=== PATIENT | female | born 1965 | race Caucasian/White ===

== ENCOUNTER 2016-12-03 11:21 | Emergency (ER) | payer OTHER ==
[2016-12-03 11:29] VITALS: TEMP 98.8
[2016-12-03] MEDS ORDERED: NS 1,000 ML IV ONE (11:41)
[2016-12-03] MEDS ORDERED: ONDANSETRON 4 MG/2 ML VIAL IVP ONE (11:41)
[2016-12-03 12:28] LABS: % IMMATURE GRANULYOCYTES 0.3 % (0.0-1.1); ABSOLUTE IMMATURE GRANULOCYTES 0.02 10^3/uL (0.00-0.10); ADD DIFF? NO; ADD MORPH? NO; ADD SCAN? YES; ATYPICAL LYMPHOCYTE FLAG 0 (0-99); FRAGMENT RBC FLAG 0 (0-99); HEMATOCRIT 44.5 % (38.0-47.0); HEMOGLOBIN 14.3 g/dL (12.6-16.3); LIPEMIA HEMOLYSIS FLAG 80 (0-99); MEAN CELL HEMOGLOBIN 26.7 pg (27.9-34.1); MEAN CELL HEMOGLOBIN CONCENTR. 32.1 g/dL (32.4-36.7); MEAN CELL VOLUME 83.2 fL (81.5-99.8); MEAN PLATELET VOLUME 10.9 fL (8.7-11.7); PLATELET CLUMPS FLAG 0 (0-99); PLATELET COUNT 241 10^3/uL (150-400); RED BLOOD CELL COUNT 5.35 10^6/uL (4.18-5.33); RED CELL DISTRIBUTION WIDTH 14.5 % (11.5-15.2)
[2016-12-03 12:30] LABS: LEFT SHIFT FLG 220 (0-99)
--- NOTE | 2016-12-03 12:32 | EDPHY ---
H & P Stated Complaint: Abd pain x 1 month;started n/v/d since last night Time Seen by Provider: 12/03/16 12:22 HPI/ROS: CHIEF COMPLAINT: abdominal pain HISTORY OF PRESENT ILLNESS: The patient is a 50 y/o female arriving with hr family member complaining of worsening abdominal pain over the last two months and vomiting onset early this morning around 04:00. She has a history of intermittent abdominal pain related to IBS, constipation, and multiple colonoscopies due to polyps. She reports worsening constipation for the last 2 weeks and loss of appetite. The abd pain is diffuse and feels like "pulling on my organs" and is worse on the right side described as "burning." The pain improves when she pushes on her abdomen or has a bowel movement and worsens at night or after eating. She also notes a "low-grade" fever and chills. She has no history of diverticulosis. Reports "lots of scarring" in her abdomen from past surgery. REVIEW OF SYSTEMS: Constitutional: see HPI Eyes: No visual changes ENT: No sore throat Respiratory: No cough, no shortness of breath Cardiac: No chest pain Gastrointestinal: see HPI Genitourinary: No hematuria, no dysuria Musculoskeletal: No leg pain or swelling Skin: No rash Neurological: No headache, no weakness Psychiatric: No depression - Personal History LMP (Females 10-55): Over 28 Days Ago Current Tetanus Diphtheria and Acellular Pertussis (TDAP): Yes - Medical/Surgical History PMH: Multiple colonoscopies and polyps, IBS, constipation, cholecystectomy, HELLP, "liver stones" Hx Asthma: Yes Hx Chronic Respiratory Disease: No Hx Diabetes: No Hx Cardiac Disease: No Hx Renal Disease: No Hx Cirrhosis: No Hx Alcoholism: No Hx HIV/AIDS: No Hx Splenectomy or Spleen Trauma: No Other PMH: kidney stones, asthma, 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 Family member at bedside. - Physical Exam Exam: General Appearance: Alert, appears-uncomfortable, curled on the bed Eyes: Pupils equal and round, no conjunctival pallor or injection ENT, Mouth: Mucous membranes moist Neck: Normal inspection Respiratory: Lungs are clear to auscultation Cardiovascular: Regular rate and rhythm Gastrointestinal: Abdomen is soft with RUQ and epigastric tenderness Neurological: A&O, nonfocal, normal gait Skin: Warm and dry, no rash Extremities: Nontender, no pedal edema Psychiatric: Mood and affect normal Constitutional: Initial Vital Signs Temperature (C) 37.1 C 12/03/16 11:26 Heart Rate 123 H 12/03/16 11:26 Respiratory Rate 18 12/03/16 11:26 Blood Pressure 121/80 H 12/03/16 11:26 O2 Sat (%) 96 12/03/16 11:26 O2 Delivery Mode Room Air O2 (L/minute) 2 Allergies/Adverse Reactions: iodine [Iodine] Allergy (Verified 12/03/16 11:26) ITCHINESS Home Medications: Medication Instructions Recorded Nortriptyline HCl [Pamelor 50 mg 50 mg PO HS 10/02/11 (*)] Albuterol [Proventil] 17 gm IH Q6 PRN 05/28/15 Pregabalin [Lyrica 50mg (*)] 50 mg PO DAILY 05/28/15 Pulmicort 180Mcg Flexhaler (RX) 2 puffs IN DAILY 05/28/15 Ondansetron Odt [Zofran Odt 4 mg 4 mg PO Q4 PRN #6 tab 12/03/16 (*)] Medical Decision Making - Diagnostics Imaging Results: CT abd/pelvis: NAD Imaging: Discussed imaging studies w/ drum carrier Radiologist, I viewed and interpreted images myself ED Course/Re-evaluation: This is a 50 y/o female who presents with worsening pain, constipation, and 8 hours of vomiting. She is uncomfortable with RUQ and epigastric tenderness on exam. She is afebrile. Plan for IV, labs, UA, and abdominal CT to rule out acute intraabdominal process. Symptom management with 1L IV NS, 4mg IV Zofran, 6mg IV morphine. Premedicated for CT with 125mg IV Solumedrol and 25mg IV Benadryl. CT does not show acute process. Feels better overall. Toradol 15mg IV given. I discussed findings with the patient and recommended outpatient follow up in the next few days. Return precautions given. She is comfortable with this plan. Differential Diagnosis: Differential diagnosis includes though it is not limited to appendicitis, cholecystitis, diverticulitis, pyelonephritis, bowel perforation, small bowel obstruction. - Data Points Laboratory Results: Laboratory Results 12/03/16 11:40 12/03/16 11:40 Medications Given: Discontinued Medications Diphenhydramine HCl (Benadryl Injection) 25 mg IVP EDNOW ONE Stop: 12/03/16 12:49 Last Admin: 12/03/16 13:10 Dose: 25 mg Sodium Chloride (Ns) 1,000 mls @ 0 mls/hr IV ONCE ONE; Wide Open PRN Reason: Protocol Stop: 12/03/16 11:42 Last Admin: 12/03/16 11:45 Dose: 1,000 mls Ketorolac Tromethamine (Toradol) 15 mg IVP EDNOW ONE Stop: 12/03/16 14:41 Last Admin: 12/03/16 15:10 Dose: 15 mg Methylprednisolone Sodium Succinate (Solu-Medrol) 125 mg IVP EDNOW ONE Stop: 12/03/16 12:49 Last Admin: 12/03/16 13:10 Dose: 125 mg Morphine Sulfate (Morphine) 6 mg IVP Q1H PRN PRN Reason: Pain, Severe Unable to Take PO Stop: 12/03/16 14:37 Last Admin: 12/03/16 12:48 Dose: 6 mg Ondansetron HCl (Zofran) 4 mg IVP EDNOW ONE Stop: 12/03/16 11:42 Last Admin: 12/03/16 11:45 Dose: 4 mg Departure - Departure Disposition: Home, Routine, Self-Care Clinical Impression: Abdominal pain Qualifiers: Abdominal location: generalized Qualified Code(s): R10.84 - Generalized abdominal pain Condition: Good Instructions: Acute Abdominal Pain (ED), Acute Nausea and Vomiting (ED) Additional Instructions: Follow up with your primary care provider for ongoing symptoms over the next few days. Return to the ED for worsening of condition. Referrals: Chey Boland MD [Primary Care Provider] - As per Instructions Prescriptions: Ondansetron Odt [Zofran Odt 4 mg (*)] 4 mg PO Q4 PRN #6 tab PRN Reason: Nausea Report Scribed for: Jane Lobo Report Scribed by: Barbie Taylor Date of Report: 12/03/16 Time of Report: 12:33 Physician Review and Approval Statement: 12/03/16 12:33 Portions of this note were transcribed by a medical office manager. I personally performed a history, physical exam, medical decision making, and confirmed accuracy of information the transcribed note.
[2016-12-03 12:35] LABS: ALANINE AMINOTRANSFERASE 31 IU/L (9-52); ALBUMIN 4.2 g/dL (3.5-5.0); ALKALINE PHOSPHATASE 63 IU/L (38-126); ANION GAP 16 mEq/L (8-16); ASPARTATE AMINOTRANSFERASE 28 IU/L (14-46); BILIRUBIN,TOTAL 0.6 mg/dL (0.1-1.4); BILIRUBIN-CONJUGATED 0.3 mg/dL (0.0-0.5); BILIRUBIN-UNCONJUGATED 0.3 mg/dL (0.0-1.1); CALCIUM 9.1 mg/dL (8.5-10.4); CARBON DIOXIDE 20 mEq/l (22-31); CHLORIDE 105 mEq/L (97-110); CREATININE 0.7 mg/dL (0.6-1.0); GLOMERULAR FILTRATION RATE > 60; GLUCOSE 124 mg/dL (70-100); SODIUM 141 mEq/L (134-144); TOTAL PROTEIN 6.9 g/dL (6.3-8.2)
[2016-12-03] MEDS ORDERED: methylPREDNISolone SOD SUCC 125 MG/2 ML VIAL IVP ONE (12:48)
[2016-12-03] MEDS ORDERED: IOPAMIDOL (ISOVUE-300) 100 ML BTL ONE (13:21)
[2016-12-03 13:23] LABS: SCAN POSITIVE
[2016-12-03 13:33] LABS: PLATELET ESTIMATE ADEQUATE (ADEQ); POLYCHROMASIA 1+
[2016-12-03] MEDS ORDERED: KETOROLAC 15 MG/1 ML SDV IVP ONE (14:40)
[2016-12-03 15:22] VITALS: BP 100/66; PULSE 92; RESP 16; O2SAT 95
== END 2016-12-03 15:21 | disposition home or self-care (01) ==
DX: R10.84 Generalized abdominal pain (principal); E86.9 Volume depletion, unspecified; J45.909 Unspecified asthma, uncomplicated
CPT/HCPCS: 96374; J1200; J1885; J2405; Q9967

== ENCOUNTER 2017-11-03 21:02 | Emergency (ER) | payer OTHER ==
[2017-11-03] MEDS ORDERED: ONDANSETRON DISINTEGRATING 4 MG TAB PO ONE (21:30)
--- NOTE | 2017-11-03 21:39 | EDPHY ---
H & P Stated Complaint: stood up into jules no loc Time Seen by Provider: 11/03/17 21:39 HPI/ROS: HPI CHIEF COMPLAINT: Head trauma HISTORY OF PRESENT ILLNESS: Patient is a 51-year-old female she is otherwise healthy, does have thyroid disease, presents emergency room after she was bending over to pick something up and stood up and hit her head on a metal jules. No LOC but has nausea. She complains of a global headache and headache that radiates down the right side her face. Denies vomiting but feels very nauseous. Denies chest pain or shortness of breath. This happened at 7:00 p.m. At night it is almost now 10:00 p.m. At night. She has been icing it. She decided come the emergency room due to ongoing nausea. Past Medical History: Denies significant medical history except thyroid disease Past Surgical History: Multiple orthopedic surgeries include bilateral feet Social History: Denies daily use of drugs alcohol tobacco. Did have a glass of wine tonight. Family History: ROS REVIEW OF SYSTEMS: A comprehensive 10 point review of systems is otherwise negative aside from elements mentioned in the history of present illness. Exam Constitutional appears well nontoxic no acute distress triage nursing summary reviewed, vital signs reviewed, awake/alert. Eyes normal conjunctivae and sclera, EOMI, PERRLA. HENT normal inspection, atraumatic, moist mucus membranes, no epistaxis, neck supple/ no meningismus, no raccoon eyes. Respiratory clear to auscultation bilaterally, normal breath sounds, no respiratory distress, no wheezing. Cardiovascular rate normal, regular rhythm, no murmur, no edema, distal pulses normal. Gastrointestinal soft, non-tender, no rebound, no guarding, normal bowel sounds, no distension, no pulsatile mass. Genitourinary no CVA tenderness. Musculoskeletal no midline vertebral tenderness, full range of motion, no calf swelling, no tenderness of extremities, no meningismus, good pulses, neurovascularly intact. Skin pink, warm, & dry, no rash, skin atraumatic. Neurologic unremarkable neurological exam, no focal neuro deficit, awake, alert and oriented x 3, AAOx3, moves all 4 extremities equally, motor intact, sensory intact, CN II-XII intact, normal cerebellar, normal vision, normal speech. Psychiatric normal mood/affect. Heme/Lymph/Immune no lymphadenopathy. Differential Diagnosis: Includes but is not limited to in a particular order closed-head injury, intracranial bleed, subdural, epidural, traumatic subarachnoid, concussion Medical Decision Making: Plan for this patient CT head without contrast for trauma, Zofran for nausea, ibuprofen for pain control and re-evaluate. Re-evaluation: CT scan head without contrast called to me by Dr. Burnette, negative for acute traumatic injury. [id number]: Discussed results with the patient. She is comfortable being discharged. She feels better and anti-inflammatory pain medicine and Zofran. Return precautions discussed with her. Follow up with primary care doctor versus concussion specialist. Clinically most likely has a concussion. 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 tarsal tunnel surg - Social History Smoking Status: Never smoked Constitutional: Initial Vital Signs Temperature (C) 36.7 C 11/03/17 21:17 Heart Rate 77 11/03/17 21:17 Respiratory Rate 18 11/03/17 21:17 Blood Pressure 157/88 H 11/03/17 21:17 O2 Sat (%) 96 11/03/17 21:17 O2 Delivery Mode Room Air Allergies/Adverse Reactions: iodine [Iodine] Allergy (Verified 12/03/16 11:26) ITCHINESS Home Medications: Medication Instructions Recorded Nortriptyline HCl [Pamelor 50 mg 50 mg PO HS 10/02/11 (*)] Albuterol [Proventil] 17 gm IH Q6 PRN 05/28/15 Pregabalin [Lyrica 50mg (*)] 50 mg PO DAILY 05/28/15 Pulmicort 180Mcg Flexhaler (RX) 2 puffs IN DAILY 05/28/15 [place] Thyroid 11/03/17 Estradiol 11/03/17 Ibuprofen [Motrin (*)] 800 mg PO Q6-8PRN #10 tab 11/03/17 Linzess 11/03/17 Ondansetron HCl [Zofran] 4 mg PO Q4-6PRN PRN #10 tablet 11/03/17 Progesterone 11/03/17 Medical Decision Making - Diagnostics Imaging Results: Imaging Impressions Head CT 11/03/17 21:46 Impression: No acute intracranial findings. Findings discussed with Tao Meredith MD 11/03/2017 at 22:14. - Data Points Medications Given: Discontinued Medications Ibuprofen (Motrin) 800 mg PO EDNOW ONE Stop: 11/03/17 21:47 Last Admin: 11/03/17 22:11 Dose: 800 mg Ondansetron HCl (Zofran Odt) 4 mg PO EDNOW ONE Stop: 11/03/17 21:31 Last Admin: 11/03/17 21:35 Dose: 4 mg Departure - Departure Disposition: Home, Routine, Self-Care Clinical Impression: Concussion Qualifiers: Encounter type: initial encounter Loss of consciousness presence/duration: without LOC Qualified Code(s): S06.0X0A - Concussion without loss of consciousness, initial encounter Head injury Qualifiers: Encounter type: initial encounter Qualified Code(s): S09.90XA - Unspecified injury of head, initial encounter Condition: Good Instructions: Concussion (ED), Head Injury (ED) Additional Instructions: 1. Return emergency room if you have worsening pain vomiting or questions or concerns. 2. Anti-inflammatory pain medicine for pain control. 3. Zofran for nausea. 4. Follow up with concussion specialist as needed and her primary care doctor. Referrals: Chey Boland MD [Primary Care Provider] - As per Instructions Prescriptions: Ibuprofen [Motrin (*)] 800 mg PO Q6-8PRN #10 tab Ondansetron HCl [Zofran] 4 mg PO Q4-6PRN PRN #10 tablet PRN Reason: Nausea/Vomiting, Use 1st
[2017-11-03] MEDS ORDERED: IBUPROFEN 800 MG TAB PO ONE (21:46)
[2017-11-03 23:04] VITALS: BP 123/72
== END 2017-11-03 23:02 | disposition home or self-care (01) ==
DX: S06.0X0A Concussion without loss of consciousness, initial encounter (principal); J45.909 Unspecified asthma, uncomplicated; W26.8XXA Contact with other sharp object(s), not elsewhere classified, initial encounter; Y99.8 Other external cause status; Y93.89 Activity, other specified

== ENCOUNTER → 2018-05-11 | Outpatient (CLI) | payer OTHER | LOC: BMCIMAGING 14:24 | PROVIDERS: ATTEND Family Medicine | DX: Z13.828 Encounter for screening for other musculoskeletal disorder (principal) ==